=== PATIENT | female | born 1950 | race Caucasian/White ===

== ENCOUNTER 2021-07-02 06:54 | Day surgery (SDC) | payer MEDICARE ==
[2021-07-02] VITALS (7 sets, daily range): BP systolic 109–165; BP diastolic 56–96; PULSE 71–92; TEMP 97.8
[~2021-07-02] VITALS: Ht 167.6 cm; Wt 80.6 kg
[2021-07-02 08:44] LABS: INR 1.2 (0.8-3.0); PROTHROMBIN TIME 13.5 SECONDS (9.7-12.8)
[2021-07-02 08:48] LABS: POTASSIUM 3.6 mmol/L (3.5-4.5)
[2021-07-02] MEDS ORDERED: XARELTO20 MG PO (08:59)
[2021-07-02] MEDS ORDERED: TOPROL XL100 MG PO (09:00)
[2021-07-02] MEDS ORDERED: APRESOLINE 25MG25 MG PO (09:01)
[2021-07-02 09:15] LABS: THYROID STIMULATING HORMONE 0.145 uIU/mL (0.350-4.940)
[2021-07-02] MEDS ORDERED: TAMBOCOR 1100 MG/TAB PO (11:20)
--- NOTE | 2021-07-02 12:30 | NUR ---
Discharge instructions given to pt.Pt verbalizes understanding.INT removed,cathetr tip intact.Pt escorted out via wheelchair by this nurse.
== END 2021-07-02 13:33 ==
LOC: COL.CAR 06:54
PROVIDERS: Internal Medicine Interventional Cardiology
DX: I48.0 Paroxysmal atrial fibrillation (principal); I27.20 Pulmonary hypertension, unspecified; I35.0 Nonrheumatic aortic (valve) stenosis; I51.7 Cardiomegaly; E04.9 Nontoxic goiter, unspecified; Z79.01 Long term (current) use of anticoagulants
CPT/HCPCS: J2405; J7030